=== PATIENT | male | born 1960 | race African-American/Black ===

== ENCOUNTER 2019-08-27 17:27 | Emergency (ER) | payer SELFPAY ==
[~2019-08-27] VITALS: Ht 185.4 cm; Wt 82.0 kg
[2019-08-27 17:36] VITALS: BP 108/90
== END 2019-08-27 18:21 | disposition left against medical advice (07) ==
LOC: ER 17:27
DX: F10.129 Alcohol abuse with intoxication, unspecified (principal); F12.10 Cannabis abuse, uncomplicated; Y90.9 Presence of alcohol in blood, level not specified
CPT/HCPCS: 99283

== ENCOUNTER 2020-02-04 16:15 | Emergency (ER) | payer MEDICAID ==
[~2020-02-04] VITALS: Ht 182.9 cm; Wt 82.0 kg
[2020-02-04 16:16] VITALS: BP 110/70
== END 2020-02-04 17:00 | disposition home or self-care (01) ==
LOC: ER 16:15
DX: R40.2410 Glasgow coma scale score 13-15, unspecified time (principal); F12.10 Cannabis abuse, uncomplicated
CPT/HCPCS: 99283